=== PATIENT | female | born 1960 | race Caucasian/White ===

== ENCOUNTER 2022-03-23 19:22 | Emergency (ER) | payer MEDICAID ==
[~2022-03-23] VITALS: Ht 149.9 cm; Wt 59.0 kg
--- NOTE | 2022-03-23 20:44 | NUR ---
URINE COLLECTED AND SENT TO LAB
--- NOTE | 2022-03-23 20:50 | NUR ---
BIBS. TO ER BED 15. AAOX4. NOT IN ANY DISTRESS. AMBULATORY. CAME IN FOR MEDICAL CLEARANCE BECAUSE SHE WANT TO BE ADMITTED VOLUNTARILY FOR FEELING SUICIDAL. STATES THAT SHE PALN TO JUMP OFF A BUILDING. DENIES HOMICIDAL IDEATION. PT WAS PLACED IN A GOWN, WANDED, BELONGINGS PLACED IN LOCKER AND SITTER WITHIN SIGHT. URINE AND COVID SWAB COLLECTED. WAS AT THE BEDSIDE FOR EVAL.
--- NOTE | 2022-03-23 21:04 | NUR ---
TOOL TROUBLE SHOOTER AT PT'S BEDSIDE
[2022-03-23 21:22] LABS: BASOPHILS % (AUTO) 0.4 % (0.0-2.0); EOSINOPHILS % (AUTO) 1.5 % (0.0-6.0); HEMATOCRIT 34 % (39-51); HEMOGLOBIN 10.6 g/dL (13.5-17.5); LYMPHOCYTES # (AUTO) 2.6 K/uL (0.8-4.8); LYMPHOCYTES % (AUTO) 39.8 % (20.0-44.0); MEAN CORPUSCULAR HGB CONC 32 g/dl (31.0-36.0); MEAN CORPUSCULAR VOLUME 85 fL (80-96); MONOCYTES # (AUTO) 0.5 K/uL (0.1-1.30); MONOCYTES % (AUTO) 7.7 % (2.0-12.0); NEUTROPHILS # (AUTO) 3.2 K/uL (1.8-8.9); NEUTROPHILS % (AUTO) 50.6 % (43.0-81.0); PLATELET COUNT (AUTO) 241 K/uL (150-450); RED BLOOD CELL COUNT(AUTO) 3.96 MIL/uL (4.5-6.0); WHITE BLOOD COUNT (AUTO) 6.4 K/uL (4.3-11.0)
[2022-03-23 21:29] LABS: CALCIUM, SERUM 9.8 mg/dL (8.5-10.1); CARBON DIOXIDE 29 mmol/L (21-32); CHLORIDE 105 mmol/L (98-107); CREATININE 1.2 mg/dL (0.6-1.3); GLUCOSE 161 mg/dL (74-106); POTASSIUM 3.7 mmol/L (3.5-5.1); SODIUM SERUM 141 mmol/L (136-145); UREA NITROGEN, BLOOD 18 mg/dL (7-18)
[2022-03-23 21:35] LABS: ALANINE AMINOTRANSFERASE 23 U/L (12-78); ALBUMIN 3.3 g/dL (3.4-5.0); ALCOHOL, BLOOD < 3 mg/dL (0-0); ALKALINE PHOSPHATASE 70 U/L (46-116); ASPARTATE AMINOTRANSFERASE 16 U/L (15-37); BILIRUBIN,DIRECT 0.1 mg/dL (0.0-0.2); BILIRUBIN,TOTAL 0.2 mg/dL (0.2-1.0); TOTAL PROTEIN, SERUM 6.8 g/dL (6.4-8.2)
[2022-03-23 22:28] LABS: BILIRUBIN,URINE NEGATIVE (NEGATIVE); COLOR,URINE YELLOW (YELLOW); LEUKOCYTE ESTERASE ,URINE NEGATIVE (NEGATIVE); NITRITE, URINE NEGATIVE (NEGATIVE); PROTEIN,URINE 2+ mg/dl (NEGATIVE); UGLUCOSE NEGATIVE (NEGATIVE); UROBILINOGEN,URINE 0.2 EU/dL (0.2)
[2022-03-23 22:36] LABS: BACTERIA,URINE RARE /HPF (None Seen); MUCUS,URINE Few /LPF (None Seen); RBC,URINE 0-2 /HPF (0-2); WBC,URINE 0-2 /HPF (0-3)
[2022-03-24 03:42] VITALS: BP 134/74
--- NOTE | 2022-03-24 04:30 | NUR ---
PT ACCEPTED AT [facility] UNDER THE CARE OF DR. ANN. PER INTAKE REQUEST, IF PT CAN BE SENT BEFORE 0600 OTHERWISE 0800 ONWARDS.
--- NOTE | 2022-03-24 04:38 | NUR ---
REPORT GIVEN TO KAREEN PAYNE RN FOR MORENITA
--- NOTE | 2022-03-24 04:44 | NUR ---
[facility] CALLED FOR BLS GOING TO [facility] PER FLORENCE MANAGER ENROLLMENT @ 1646
== END 2022-03-24 08:49 ==
LOC: ER 19:27 → EDSEX 19:27 → ER 03-24 08:49
DX: E11.40 Type 2 diabetes mellitus with diabetic neuropathy, unspecified (principal); I10 Essential (primary) hypertension; J44.9 Chronic obstructive pulmonary disease, unspecified; K21.9 Gastro-esophageal reflux disease without esophagitis
CPT/HCPCS: 99285; 85025; 80048; 80076; 84703; 81001; 36415; 87426; 80143; 80320; 80307; C9803; G0480